=== PATIENT | female | born 1970 | race Hispanic/Latino ===

== ENCOUNTER 2018-01-26 02:41 | Inpatient (IN) | payer OTHER ==
[~2018-01-26] VITALS: Ht 154.9 cm; Wt 83.6 kg
[2018-01-26 03:26] LABS: BASOPHILS % (AUTO) 1.1 % (0.0-5.0); EOSINOPHILS % (AUTO) 2.2 % (0.0-8.0); LYMPHOCYTES % (AUTO) 24.5 % (21.0-51.0); MEAN CORPUSCULAR HEMOGLOBIN 22.3 pg (27.0-33.0); MEAN CORPUSCULAR HGB CONC 30.5 g/dL (32.0-36.0); MEAN CORPUSCULAR VOLUME 73.3 fL (79-99); MONOCYTES % (AUTO) 10.8 % (3.0-13.0); NEUTROPHILS % (AUTO) 61.4 % (40.0-77.0); NUCLEATED RED BLOOD CELLS 0.4 % (0.0-0.19); RED BLOOD CELL COUNT(AUTO) 2.34 MIL/uL (4.00-5.50); RED CELL DISTRIBUTION WIDTH 20.1 % (11.0-15.5)
[2018-01-26 03:26] LABS: APPEARANCE,URINE Clear (CLEAR); BILIRUBIN,URINE Negative (NEGATIVE); COLOR,URINE Yellow (YELLOW); GLUCOSE, URINE (UA) Negative (NEGATIVE); KETONES,URINE Negative (NEGATIVE); LEUKOCYTE ESTERASE ,URINE Negative (NEGATIVE); NITRATE,URINE Negative (NEGATIVE); OCCULT BLOOD,URINE Negative (NEGATIVE); PH,URINE 7.5 (5.0-8.0); PROTEIN,URINE Negative (NEGATIVE)
[2018-01-26 03:31] LABS: HEMATOCRIT 17.1 % (36-48)
[2018-01-26 03:34] LABS: AMPHET/METH SCREEN,URINE NEGATIVE (NEGATIVE); BARBITURATE SCREEN, URINE NEGATIVE (NEGATIVE); BENZODIAZEPINES SCREEN,URINE NEGATIVE (NEGATIVE); CANNABINOID SCREEN,URINE NEGATIVE (NEGATIVE); COCAINE SCREEN,URINE NEGATIVE (NEGATIVE); OPIATE SCREEN,URINE NEGATIVE (NEGATIVE); PHENCYCLIDINE SCREEN,URINE NEGATIVE (NEGATIVE)
[2018-01-26 03:35] LABS: CREATININE 0.5 mg/dL (0.5-1.5); POTASSIUM 3.3 mmol/L (3.5-5.1)
[2018-01-26 03:41] LABS: HCG,QUAL RESULT NEGATIVE (NEGATIVE)
[2018-01-26 03:44] LABS: BILIRUBIN,TOTAL 0.9 mg/dL (0.2-1.0); TOTAL PROTEIN, SERUM 7.6 g/dL (6.0-8.3)
[2018-01-26] MEDS ORDERED: SODIUM CHLORIDE 0.9% 100 ML IV ONE (03:55)
[2018-01-26 03:56] LABS: INR 1.04 (0.85-1.15); PARTIAL THROMBOPLASTIN TIME 28.8 SEC (26.3-35.5); PROTHROMBIN TIME 10.9 SEC (9.6-11.6)
[2018-01-26] MEDS ORDERED: THIAMINE HCL 100 MG/ML 2ML VIAL ONE (04:05)
[2018-01-26] MEDS ORDERED: SODIUM CHLORIDE 0.9% 1000ML 1,000 ML IV ONE (04:05)
[2018-01-26] MEDS ORDERED: M.V.I. IV [ADULT] 10 ML VIAL IV ONE (04:06)
[2018-01-26] MEDS ORDERED: LIDOCAINE HCL-MPF 1% 2ML VIAL IVP PRN (04:30)
[2018-01-26] MEDS ORDERED: SODIUM CHLORIDE 0.9% 1000ML 1,000 ML IV SCH (04:30)
[2018-01-26] MEDS ORDERED: ACETAMINOPHEN 325 MG TAB PO PRN (04:30)
[2018-01-26] MEDS ORDERED: MORPHINE SULFATE 4 MG/1ML SYG IV PRN (04:30)
[2018-01-26] MEDS ORDERED: MORPHINE SULFATE 2 MG/ML 1ML SYG IV PRN (04:30)
[2018-01-26] MEDS ORDERED: POTASSIUM CHLORIDE 20MEQ/100ML 100 ML IV PRN (04:30)
[2018-01-26] MEDS ORDERED: MAGNESIUM 2GM PREMIX 50ML 50 ML IV PRN (04:30)
[2018-01-26 04:32] LABS: WHITE BLOOD COUNT (AUTO) 3.1 K/uL (4.8-10.8)
[2018-01-26 04:35] LABS: PLATELET COUNT (AUTO) 72 K/uL (130-400)
[2018-01-26] MEDS ORDERED: PANTOPRAZOLE SODIUM 80 MG in SODIUM CHLORIDE 0.9% 100 ML IV SCH (04:45)
[2018-01-26] MEDS ORDERED: POTASSIUM BICARB/CIT AC 25 MEQ TABLET.EFF ONE (04:46)
[2018-01-26] MEDS ORDERED: MAGNESIUM 2GM PREMIX 50ML 50 ML IV ONE (04:46)
[2018-01-26 05:04] LABS: BILIRUBIN,DIRECT 0.4 mg/dL (0.0-0.3)
[2018-01-26] MEDS ORDERED: SODIUM CHLORIDE 0.9% 500ML 500 ML IV ONE (05:11)
[2018-01-26 05:22] VITALS: BP 137/77
[2018-01-26 08:11] VITALS: BP 129/60
[2018-01-26] MEDS: M.V.I. IV [ADULT] 10 ML, FOLIC ACID 1 MG, THIAMINE HCL 100 MG in SODIUM CHLORIDE 0.9% 1... IV SCH (09:00)
[2018-01-26] MEDS ORDERED: PANTOPRAZOLE 40 MG/VIAL IVP SCH (09:00)
[2018-01-26] MEDS ORDERED: LORAZEPAM 2 MG/ML 1 ML VIAL IVP PRN (09:30)
[2018-01-26] MEDS ORDERED: DIATR MEGLU/DIATRIZOATE SODIUM 30 ML BOTTLE ONE (09:44)
[2018-01-26] MEDS ORDERED: PEG 3350/NA SULF,BICARB,CL/KCL 4000 ML SOLN PO SCH (10:00)
[2018-01-26 11:41] VITALS: BP 130/73
[2018-01-26] MEDS ORDERED: IOHEXOL 350 MG/ML 100ML INFUS..BTL IV ONE (12:08)
[2018-01-26] MEDS: FUROSEMIDE 10 MG/ML 2ML VIAL IV SCH ×2 (13:08→20:17)
[2018-01-26 13:26] LABS: HEMATOCRIT 25.3 % (36-48)
[2018-01-26 13:39] LABS: MAGNESIUM 1.7 mg/dL (1.80-2.40); POTASSIUM 3.8 mmol/L (3.5-5.1)
[2018-01-26 16:14] VITALS: BP 153/77
[2018-01-26] MEDS: ONDANSETRON HCL 4 MG/2 ML VIAL IV PRN (18:24)
[2018-01-26 19:54] VITALS: BP 145/78
[2018-01-26 22:03] LABS: HEMATOCRIT 24.5 % (36-48)
[2018-01-26 23:51] VITALS: BP 135/75
[2018-01-27] VITALS (13 sets, daily range): BP systolic 99–144; BP diastolic 55–81
[2018-01-27 04:01] LABS: BASOPHILS % (AUTO) 0.5 % (0.0-5.0); EOSINOPHILS % (AUTO) 1.1 % (0.0-8.0); HEMATOCRIT 23.8 % (36-48); LYMPHOCYTES % (AUTO) 9.6 % (21.0-51.0); MEAN CORPUSCULAR HEMOGLOBIN 23.6 pg (27.0-33.0); MEAN CORPUSCULAR VOLUME 76.1 fL (79-99); MONOCYTES % (AUTO) 10.9 % (3.0-13.0); NEUTROPHILS % (AUTO) 77.9 % (40.0-77.0); NUCLEATED RED BLOOD CELLS 0.4 % (0.0-0.19); RED BLOOD CELL COUNT(AUTO) 3.13 MIL/uL (4.00-5.50); RED CELL DISTRIBUTION WIDTH 20.1 % (11.0-15.5); WHITE BLOOD COUNT (AUTO) 3.8 K/uL (4.8-10.8)
[2018-01-27 04:08] LABS: ALBUMIN 2.9 g/dL (3.5-5.0); BILIRUBIN,DIRECT 0.9 mg/dL (0.0-0.3); BILIRUBIN,TOTAL 2.3 mg/dL (0.2-1.0); CREATININE 0.5 mg/dL (0.5-1.5); POTASSIUM 3.3 mmol/L (3.5-5.1); TOTAL PROTEIN, SERUM 7.3 g/dL (6.0-8.3)
[2018-01-27 05:09] LABS: PLATELET COUNT (AUTO) 84 K/uL (130-400)
[2018-01-27] MEDS: ONDANSETRON HCL 4 MG/2 ML VIAL IV PRN (05:13)
[2018-01-27 09:20] LABS: HEMATOCRIT 24.1 % (36-48)
[2018-01-27] MEDS: FUROSEMIDE 10 MG/ML 2ML VIAL IV SCH (09:30)
[2018-01-27] MEDS ORDERED: PROPOFOL 10 MG/ML 20ML VIAL IV ONE ×3 (10:34→10:46)
[2018-01-27] MEDS: M.V.I. IV [ADULT] 10 ML, FOLIC ACID 1 MG, THIAMINE HCL 100 MG in SODIUM CHLORIDE 0.9% 1... IV SCH (11:48)
[2018-01-27] MEDS ORDERED: EPOETIN ALFA 10,000 UNIT/ML VIAL SQ SCH (18:15)
[2018-01-27] MEDS ORDERED: POTASSIUM CHLORIDE 20 MEQ ERTAB PO SCH (18:15)
[2018-01-27] MEDS ORDERED: FOLI1TAB15 PO (18:19)
[2018-01-27] MEDS ORDERED: FERR-82 PO (18:19)
[2018-01-27] MEDS ORDERED: MVIT PO (18:19)
[2018-01-27] MEDS ORDERED: PANT40TA PO (18:19)
[2018-01-28] MEDS ORDERED: PANTOPRAZOLE SODIUM 40 MG TABLET.DR PO SCH (07:30)
[2018-01-29 04:15] LABS: HEPATITIS A ANTIBODY IGM Negative (Negative); HEPATITIS B CORE IGM Negative (Negative); HEPATITIS Bs ANTIGEN SCREEN P Negative (Negative)
== END 2018-01-27 20:38 | disposition home or self-care (01) | DRG 241 ==
LOC: EDH 02:41 → EDHIP 04:10 → 2DH 04:54
PROVIDERS: ADMIT Internal Medicine; ATTEND Internal Medicine
PROC: 30233N1 Transfusion of Nonautologous Red Blood Cells into Peripheral Vein, Percutaneous Approach (ICD-10-PCS; 2018-01-26)
PROC: 0DB68ZX Excision of Stomach, Via Natural or Artificial Opening Endoscopic, Diagnostic (ICD-10-PCS; principal; 2018-01-27)
PROC: 3E0234Z Introduction of Serum, Toxoid and Vaccine into Muscle, Percutaneous Approach (ICD-10-PCS; 2018-01-27)
PROC: 0DJD8ZZ Inspection of Lower Intestinal Tract, Via Natural or Artificial Opening Endoscopic (ICD-10-PCS; 2018-01-27)
DX: K29.71 Gastritis, unspecified, with bleeding (principal); D69.6 Thrombocytopenia, unspecified; E44.0 Moderate protein-calorie malnutrition; D62 Acute posthemorrhagic anemia; K74.60 Unspecified cirrhosis of liver; E66.01 Morbid (severe) obesity due to excess calories; E83.42 Hypomagnesemia; E87.6 Hypokalemia; F10.229 Alcohol dependence with intoxication, unspecified; K92.1 Melena; E56.9 Vitamin deficiency, unspecified; E03.9 Hypothyroidism, unspecified; Y90.8 Blood alcohol level of 240 mg/100 ml or more; K31.89 Other diseases of stomach and duodenum; K64.0 First degree hemorrhoids; Z68.36 Body mass index [BMI] 36.0-36.9, adult; Z23 Encounter for immunization; Z80.9 Family history of malignant neoplasm, unspecified
CPT/HCPCS: 36415; 43239; 45378; 71045; 74178; 80053; 80074; 80305; 81003; 81025; 82140; 82150; 82248; 82270; 82550; 83036; 83690; 83735; 83874; 84132; 84484; 85014; 85018; 85025; 85610; 85730; 86701; 86850; 86900; 86901; 86922; 87390; 88305; 93005; C9113; G0480; J0885; J1940; J2405; J2704; J3411; J3475; J3480; J3490; J7030; J7040; P9016; Q2038; Q9963; Q9967

== ENCOUNTER 2019-03-18 09:08 | Inpatient (IN) | payer OTHER ==
[2019-03-18] VITALS (19 sets, daily range): BP systolic 86–129; BP diastolic 38–69
[~2019-03-18] VITALS: Ht 154.9 cm; Wt 82.6 kg
[~2019-03-18 09:08] MED LIST: FERR-82 PO; FOLI1TAB15 PO; MVIT PO; PANT40TA PO
[2019-03-18 09:42] LABS: BASOPHILS % (AUTO) 0.6 % (0.0-5.0); EOSINOPHILS % (AUTO) 0.8 % (0.0-8.0); LYMPHOCYTES % (AUTO) 14.4 % (21.0-51.0); MEAN CORPUSCULAR HEMOGLOBIN 33.6 pg (27.0-33.0); MEAN CORPUSCULAR VOLUME 108.5 fL (79-99); MONOCYTES % (AUTO) 6.8 % (3.0-13.0); NEUTROPHILS % (AUTO) 77.4 % (40.0-77.0); PLATELET COUNT (AUTO) 165 K/uL (130-400); RED BLOOD CELL COUNT(AUTO) 2.03 MIL/uL (4.00-5.50); RED CELL DISTRIBUTION WIDTH 15.5 % (11.0-15.5); WHITE BLOOD COUNT (AUTO) 11.4 K/uL (4.8-10.8)
[2019-03-18 09:55] LABS: CARBON DIOXIDE 24 mmol/L (21-32); CHLORIDE 99 mmol/L (101-111); CREATININE 0.7 mg/dL (0.5-1.5); GLOMERULAR FILTR. RATE CALC 95 mL/min (>60); GLUCOSE,RANDOM 95 mg/dL (70-105); INR 1.67 (0.85-1.15); PARTIAL THROMBOPLASTIN TIME 34.7 SEC (26.3-35.5); POTASSIUM 4.2 mmol/L (3.5-5.1); PROTHROMBIN TIME 17.2 SEC (9.6-11.6); SODIUM SERUM 131 mmol/L (136-145); UREA NITROGEN, BLOOD 7 mg/dL (7-18)
[2019-03-18] MEDS ORDERED: KETOROLAC TROMETHAMINE 30MG/ML ONE (09:56)
[2019-03-18] MEDS ORDERED: ALBUMIN (HUMAN) 25% 50 ML IV ONE ×2 (09:56→10:28)
[2019-03-18] MEDS ORDERED: ONDANSETRON HCL 4 MG/2 ML VIAL ONE (09:56)
[2019-03-18] MEDS ORDERED: SODIUM CHLORIDE 0.9% 500ML 500 ML IV ONE (09:57)
[2019-03-18 10:03] LABS: ALANINE AMINOTRANSFERASE 23 U/L (12-78); ALBUMIN 1.6 g/dL (3.5-5.0); ALCOHOL, BLOOD < 3 mg/dL (0-10); ASPARTATE AMINOTRANSFERASE 105 U/L (10-37); BILIRUBIN,TOTAL 10.4 mg/dL (0.2-1.0); CREATINE KINASE, TOTAL 62 U/L (21-232); LIPASE 122 U/L (114-286); TOTAL PROTEIN, SERUM 5.7 g/dL (6.0-8.3)
[2019-03-18 10:09] LABS: BILIRUBIN,DIRECT 8.6 mg/dL (0.0-0.3)
[2019-03-18] MEDS ORDERED: CEFTRIAXONE SODIUM 2 GM VIAL ONE (10:27)
[2019-03-18] MEDS ORDERED: OCTREOTIDE ACETATE 500 MCG in SODIUM CHLORIDE 0.9% 97.5 ML IV PRN (11:00)
[2019-03-18] MEDS: CEFTRIAXONE SODIUM 1 GM IV SCH (11:00)
[2019-03-18] MEDS ORDERED: PANTOPRAZOLE SODIUM 80 MG in SODIUM CHLORIDE 0.9% 100 ML IV SCH (11:01)
[2019-03-18] MEDS ORDERED: NOREPINEPHRINE 4MG/NS 250ML 250 ML IV SCH (12:15)
[2019-03-18] MEDS ORDERED: PHARMACY COMMUNICATION MISC PRN (12:15)
[2019-03-18] MEDS ORDERED: LORAZEPAM 2 MG/ML 1 ML VIAL IVP PRN (12:15)
[2019-03-18] MEDS ORDERED: CHLORDIAZEPOXIDE HCL 25 MG CAP PO PRN (12:15)
[2019-03-18] MEDS ORDERED: NOREPINEPHRINE BITARTRATE 1 MG/1 ML ML IV ONE (12:25)
[2019-03-18] MEDS ORDERED: SODIUM CHLORIDE 0.9% 250 ML IV ONE (12:25)
[2019-03-18] MEDS ORDERED: FUROSEMIDE 10 MG/ML 2ML VIAL IV SCH (13:00)
[2019-03-18] MEDS ORDERED: ALBUMIN (HUMAN) 5% 250 ML IV SCH (13:45)
[2019-03-18 14:12] LABS: HEMATOCRIT 21.1 % (36-48)
[2019-03-18] MEDS ORDERED: PHYTONADIONE 10 MG/1 ML AMP SQ SCH (15:00)
[2019-03-18] MEDS ORDERED: OMEP-298 PO (15:14)
[2019-03-18] MEDS ORDERED: SPIR25TA6 PO (15:17)
[2019-03-18] MEDS ORDERED: LACT10SO PO (15:18)
[2019-03-18] MEDS: LEVOFLOXACIN 500 MG/D5W 100 ML 100 ML IV SCH (16:32)
[2019-03-18] MEDS: SODIUM CHLORIDE 0.9% 1000ML 1,000 ML IV SCH ×2 (16:35→20:54)
[2019-03-18] MEDS ORDERED: PEG 3350/NA SULF,BICARB,CL/KCL 4000 ML SOLN PO SCH (17:00)
--- NOTE | 2019-03-18 20:33 | NUR ---
PT HAS NEAR FINISHED HER [employer]. IN AND OUT OF BED TO BATHROOM. BP 129/56. NO DIZZINESS.
[2019-03-18] MEDS ORDERED: MIDODRINE HCL 5 MG TABLET PO SCH (21:00)
[2019-03-18 21:33] LABS: HEMATOCRIT 22.3 % (36-48)
--- NOTE | 2019-03-18 22:58 | NUR ---
HAND OFF REPORT GIVEN TO ANTONIO BLAKE.
[2019-03-19] VITALS (13 sets, daily range): BP systolic 75–102; BP diastolic 34–57
[2019-03-19 03:45] LABS: HEMATOCRIT 21.2 % (36-48); MEAN CORPUSCULAR HEMOGLOBIN 33.5 pg (27.0-33.0); MEAN CORPUSCULAR HGB CONC 30.7 g/dL (32.0-36.0); MEAN CORPUSCULAR VOLUME 109.1 fL (79-99); NUCLEATED RED BLOOD CELLS 0.1 % (0.0-0.19); PLATELET COUNT (AUTO) 113 K/uL (130-400); RED BLOOD CELL COUNT(AUTO) 1.94 MIL/uL (4.00-5.50); RED CELL DISTRIBUTION WIDTH 15.1 % (11.0-15.5); WHITE BLOOD COUNT (AUTO) 5.8 K/uL (4.8-10.8)
[2019-03-19 03:57] LABS: INR 1.85 (0.85-1.15)
[2019-03-19 04:01] LABS: % IRON SATURATION 13.4 % (22-44)
[2019-03-19 04:03] LABS: ALBUMIN 1.7 g/dL (3.5-5.0); CREATININE 0.8 mg/dL (0.5-1.5); POTASSIUM 3.6 mmol/L (3.5-5.1)
--- NOTE | 2019-03-19 04:10 | NUR ---
CRITICAL LAB VALUE REPORTED H/H RESULTS ALONG WITH LOW BP TO SOFIA FROM BM. ORDERS GIVEN.
[2019-03-19 04:28] LABS: THYROID STIMULATING HORMONE 2.57 uIU/mL (0.36-3.74)
[2019-03-19] MEDS ORDERED: SODIUM CHLORIDE 0.9% 500ML 500 ML IV ONE (04:47)
--- NOTE | 2019-03-19 05:09 | NUR ---
BLOOD TRANSFUSION 1 UNIT OF PRBC INFUSING AT 125ML/HR. REFER TO TRANSFUSION FORM. PT EDUCATED ON SIGNS AND SYMPTOMS OF REACTION. CALL LIGHT WITHIN REACH.
--- NOTE | 2019-03-19 05:15 | NUR ---
BLOOD TRANSFUSION PT IN BED RESTING. PT IN NO SIGN OF DISTRESS. DENIES SOB.
[2019-03-19 05:22] LABS: BAND NEUTROPHILS % (MANUAL) 4 % (0-2); EOSINOPHILS % (MANUAL) 2 % (1-6); LYMPHOCYTES % (MANUAL) 12 % (22-44); MAN.DIFF COMMENT-IMPRESSION MANUAL DIFFERENTIAL; MONOCYTES % (MANUAL) 10 % (2-9); PLATELET MORPHOLOGY COMMENT ADEQUATE; SEGMENTED NEUTROPHILS % 72 % (40-70)
[2019-03-19] MEDS ORDERED: PROPOFOL 10 MG/ML 20ML VIAL IV ONE ×2 (07:33→07:58)
[2019-03-19] MEDS ORDERED: M.V.I. IV [ADULT] 10 ML, FOLIC ACID 1 MG, THIAMINE HCL 100 MG in SODIUM CHLORIDE 0.9% 1... IV SCH (09:00)
[2019-03-19] MEDS ORDERED: THIAMINE HCL 100 MG/ML 2ML VIAL IVP SCH (09:00)
[2019-03-19] MEDS: MIDODRINE HCL 5 MG TABLET PO SCH ×3 (09:00→20:33)
[2019-03-19 10:17] LABS: HEMATOCRIT 24.6 % (36-48)
--- NOTE | 2019-03-19 11:43 | NUR ---
PT IS READY TO BE MOVED TO ROOM 410 WILL GIVE REPORT TO SHANKAR.
--- NOTE | 2019-03-19 12:30 | NUR ---
RECEIVED PT FROM JAKOB, FROM ICU ROOM 217
[2019-03-19] MEDS: CEFTRIAXONE SODIUM 1 GM IV SCH (12:45)
--- NOTE | 2019-03-19 12:51 | NUR ---
HEAD TO TOE ASSESSMENT PATIENT IN BED AAOX3, IN NO DISTRESS, DENIES ANY SOB, LUNGS SOUNDS CLEAR AP & L LUNG PATTERSON., UP WALKING IN AND OUT OF RESTROOM TO VOID. IV X3, WITH SCANT AMOUNT OF BLOOD NOTED TO BOTH ANTECUBITAL DRESSINGS, RIGHT FOREARM INTACT, ABDOMINAL DISTENTION NOTED, DENIES ANY PAIN, BOWEL SOUNDS PRESENT X4 QUADRANTS, +2 PITTING EDEMA TO CAIN. LOWER EXTREMITIES. NO WOUNDS NOTED.
--- NOTE | 2019-03-19 15:06 | NUR ---
DC PLAN VISITED WITH PATIENT. PATIENT LIVES WITH SISTER AND TIMI, PATIENT HAS NO SERVICES OR DME'S. FEELS SAFE TO RETURN HOME. Addendum: 03/19/19 at 1507 by ERASMO CAICEDO RN CM Amended: Links added.
[2019-03-19 16:24] LABS: HEMATOCRIT 22.4 % (36-48)
[2019-03-19] MEDS: LEVOFLOXACIN 500 MG/D5W 100 ML 100 ML IV SCH (16:42)
[2019-03-20] VITALS (10 sets, daily range): BP systolic 85–102; BP diastolic 50–56
[2019-03-20 00:18] LABS: HEMATOCRIT 20.4 % (36-48)
--- NOTE | 2019-03-20 01:55 | NUR ---
TRANSFUSION HGB 6.5 CALLED HOSPITALIST SHARON HUR[employer] TEST TECHNICIAN INFORMED WITH ORDERS FOR TRANSFUSION, ONE UNIT PRBC STARTED WITH BLOOD WARM INDICATED BY BLOOD BANK VIA LEFT AC 20 GAUGE CATHETER, TEMP 97.6 F PULSE 72 B/P 89/53 SAT 98 % ON R/A
--- NOTE | 2019-03-20 02:00 | NUR ---
TRANSFUSION NO REACTION NOTED, PRBC INFUSING WELL, TEMP 97.9 F P 67 RESP 20 B/P 89/51
--- NOTE | 2019-03-20 02:10 | NUR ---
TRANSFUSION NO REACTION NOTED, PRBC INFUSING WELL, TEMP 97.8 PULSE69 RESP 20 B/P 92/58 SAT 97 % ON RA
[2019-03-20] MEDS: SODIUM CHLORIDE 0.9% 1000ML 1,000 ML IV SCH ×2 (02:18→12:54)
--- NOTE | 2019-03-20 05:20 | NUR ---
TRANSFUSION PRBC COMPLETE, NO REACTION NOTED, TOLERATED WELL, TEMP 98.2 F PULSE 69 RESP, 18 B/P 91/58, SAT 98 % R/A
[2019-03-20 07:02] LABS: HEMATOCRIT 24.1 % (36-48); MEAN CORPUSCULAR HEMOGLOBIN 32.4 pg (27.0-33.0); MEAN CORPUSCULAR HGB CONC 32.1 g/dL (32.0-36.0); MEAN CORPUSCULAR VOLUME 100.8 fL (79-99); NUCLEATED RED BLOOD CELLS 0.1 % (0.0-0.19); PLATELET COUNT (AUTO) 113 K/uL (130-400); RED BLOOD CELL COUNT(AUTO) 2.39 MIL/uL (4.00-5.50); RED CELL DISTRIBUTION WIDTH 19.5 % (11.0-15.5); WHITE BLOOD COUNT (AUTO) 5.6 K/uL (4.8-10.8)
[2019-03-20 07:19] LABS: ALBUMIN 1.5 g/dL (3.5-5.0); BILIRUBIN,TOTAL 9.9 mg/dL (0.2-1.0); CREATININE 0.7 mg/dL (0.5-1.5); POTASSIUM 4.1 mmol/L (3.5-5.1); TOTAL PROTEIN, SERUM 4.7 g/dL (6.0-8.3)
[2019-03-20 08:17] LABS: BASOPHILS % (MANUAL) 1 % (0-2); EOSINOPHILS % (MANUAL) 2 % (1-6); LYMPHOCYTES % (MANUAL) 5 % (22-44); MAN.DIFF COMMENT-IMPRESSION MANUAL DIFFERENTIAL; MONOCYTES % (MANUAL) 11 % (2-9); PLATELET MORPHOLOGY COMMENT SLIGHTLY DECREASED; SEGMENTED NEUTROPHILS % 81 % (40-70)
--- NOTE | 2019-03-20 08:42 | NUR ---
IR SPOKE TO DEV OF RADIOLOGY DEPT TO REPORT THAT INFORMED CONSENT SIGNED FOR ABDOMINAL PARACENTESIS AND PATIENT READY TO BE PICKED UP.
[2019-03-20] MEDS ORDERED: M V I IV SCH (09:00)
[2019-03-20] MEDS ORDERED: FOLIC ACID IV SCH (09:00)
[2019-03-20] MEDS ORDERED: THIAMINE HCL IV SCH (09:00)
[2019-03-20] MEDS ORDERED: [UNRECOGNIZED DRUG - OTHER] IV SCH (09:00)
--- NOTE | 2019-03-20 09:00 | NUR ---
DR. JARA AWARE OF CONSULT SPOKE TO MD VIA TELEPHONE REGARDING CONSULT.
--- NOTE | 2019-03-20 09:55 | NUR ---
U/S GD PARACENTESIS PROCEDURE PERFORMED BY DR ESCALANTE. PUNCTURE SITE RIGHT LOWER QUADRANT OF ABDOMEN AND PATIENT TOLERATED PROCEDURE WELL. TOTAL REMOVED 2.0 LITERS OF CLEAR YELLOW ASCITES FLUID. END OF PROCEDURE AT 1010. CATHETER REMOVED AND DRESSING APPLIED. NO BLEEDING NOTED. PT DID NOT MEET CRITERIA FOR ALBUMIN TO BE GIVEN DURING PROCEDURE PER [facility] ALBUMIN PROTOCOL GUIDELINES. REPORT CALLED TO LOU CANCHOLA. PATIENT PT DISCHARGED TRANSPORTED VIA W/C, STABLE, AAO X3 WITH NO C/O PAIN. SPECIMEN SENT TO LAB.
--- NOTE | 2019-03-20 10:30 | NUR ---
CARSON OWEN FOR [facility] FOR DR. JARA HERE TO SEE PATIENT, BUT PATIENT IS CURRENTLY NOT IN ROOM SHE IS UNDERGOING ABDOMINAL PARACENTESIS. CARSON OWEN TOLD ME HE WOULD RETURN TO SEE THE PATIENT TOMORROW, BUT TOLD ME THAT HE SPOKE WITH DR. JARA AND OF RIGHT NOW NO PLANS FOR SURGERY. CARSON OWEN CONTINUED TO EXPLAIN THAT PATIENT MAY NEED A "TIPS" PROCEDURE WHICH WOULD REQUIRE TRANSFER TO [facility] ([facility]) FOR PATIENT TO BE EVALUATED BY HEPATOBILIARY SPECIALIST DR. HUYNH. I REPLIED TO CASRON OWEN THAT I WOULD INFORM HOSPITALIST OF THEIR RECOMMENDATIONS SO HOSPITALIST WOULD BE AWARE, BUT OF COURSE EXPLAIN THAT SURGEON OR PA PLANS TO TELL PATIENT THIS INFORMATION TOMORROW.
[2019-03-20] MEDS: MIDODRINE HCL 5 MG TABLET PO SCH ×4 (11:19→21:22)
[2019-03-20] MEDS: CEFTRIAXONE SODIUM 1 GM IV SCH (11:20)
[2019-03-20] MEDS: LEVOFLOXACIN 500 MG/D5W 100 ML 100 ML IV SCH (15:40)
--- NOTE | 2019-03-20 16:57 | NUR ---
LIVER FIALURE- TRANSPLANT CANDIDATE INITIAL ASSESSMENT DONE WITH PATIENT- LIVES W MOM AND SISTER- RECENT BEREAVEMENT- ADMITS TO INTERMITTANT HEAVY DRINKING. STATES THAT THE THING THAT 'TIPPED' EVERYTHING WAS THAT SHE GOT FLU AND WAS USING TYLENOL++, 3XDAY X3 WEEKS' STATES SHE KNOWS SHE HAS A LIVER PROBLEM, BUTSHE HAS NOT EEN TOLD HER LIVER WAS BAD. THIS CM RAN THE MELD SCORE- 26, (!!)AND DISCUSSED W DR. PETERSON - PT NEEDS SSI FOR LIVER DISEASE, MEETS CRITERIA TO BE ON TRANSPLANT LIST RIGHT NOW (IF ETOH ABSTINENCE X 6 MOS A CHART NEEDS DOCUMENTATION TO REFLECT SHE IS NO LONGER DRINKNING AND THAT SHE HAS A CHRONIC ILLNESS THAT WILL IMPEDE HER ABILITY TO BE EMPLOYED. MD WILL ADD TO NOTE SPOEK TO PATIENT- PLEASE GO BACK TO YOUR PRIMARY MD AND ASK FOR REFERRAL TO TRANSPLANT . ALSO ADVISED PT WILL SEND IN [facility] FOR SSI SCREENING- THERE ARE A TYPE OF SSI WHERE SHE CAN STILL WORK SOME HOURS Addendum: 03/20/19 at 1707 by MELISSA KRUSE RN CM Amended: Links added. Addendum: 03/20/19 at 1708 by MELISSA KRUSE RN CM TYPO- POSSIBLE TRANSPLANT CANDIDATE?
[2019-03-20 17:04] LABS: APPEARANCE BODY FLUID CLEAR (CLEAR); COLOR,BODY FLUID YELLOW (LT YELLOW); SPECIMENTYPE,BODY FLUID ASCITES
[2019-03-20 17:05] LABS: BODY FLUID WBC 37 /cu. mm.; TOTAL VOLUME,BODY FLUID 2000 mL
[2019-03-20 17:08] LABS: BODY FLUID RBC 18 /cu. mm.
--- NOTE | 2019-03-20 17:08 | NUR ---
TYPO- POSSIBLE TRANSPLANT CANDIDATE?? SEE PREVIOOUS NOTE RE DC PLANNING. COUNSELLED ON CIRRHOSIS AND LIVER FAILURE, NEEDS TO ABSTAIN., ASK PMD RE OPTIONS
[2019-03-20 17:11] LABS: BF LYMPHOCYTE 38 %; BF MESOTHELIAL 27 %; BF MONOCYTE 13 %; BF OTHER CELLS 2
--- NOTE | 2019-03-20 17:15 | NUR ---
DR. PETERSON INFORMED HOSPITALIST THAT I SPOKE TO DR. JARA'S PA REGARDING SURGEON RECOMMENDATIONS, BUT SURGEON/PA WAS NOT ABLE TO SEE PATIENT TODAY AND PLAN TO INFORM PATIENT TOMORROW. DR. PETERSON DID ACKNOWLEDGE POSSIBILITY OF TRANSFERRING PATIENT TO R TOMORROW AFTER SURGEON SPEAKS TO PATIENT. ALSO SPOKE TO HOSPITALIST REGARDING PATIENTS TRENDS IN BLOOD PRESSURE THROUGHOUT THE DAY AND MD TOLD ME OF PLAN TO ADMINISTER IV BLOOD AND BLOOD TRANSFUSION, IF PATIENT STILL HYPOTENSIVE AFTER THESE INTERVENTIONS, PATIENT MAY NEED TO BE TRANSFERRED TO PCCU.
[2019-03-20] MEDS ORDERED: SODIUM CHLORIDE 0.9% 500ML 500 ML IV SCH ×2 (17:30→18:30)
[2019-03-20 17:45] LABS: HEMATOCRIT 24.6 % (36-48); MEAN CORPUSCULAR HEMOGLOBIN 32.4 pg (27.0-33.0); MEAN CORPUSCULAR HGB CONC 32.2 g/dL (32.0-36.0); MEAN CORPUSCULAR VOLUME 100.7 fL (79-99); NUCLEATED RED BLOOD CELLS 0.1 % (0.0-0.19); PLATELET COUNT (AUTO) 145 K/uL (130-400); RED BLOOD CELL COUNT(AUTO) 2.44 MIL/uL (4.00-5.50); RED CELL DISTRIBUTION WIDTH 20.1 % (11.0-15.5); WHITE BLOOD COUNT (AUTO) 8.2 K/uL (4.8-10.8)
[2019-03-20 18:45] LABS: BASOPHILS % (MANUAL) 1 % (0-2); EOSINOPHILS % (MANUAL) 3 % (1-6); LYMPHOCYTES % (MANUAL) 4 % (22-44); MAN.DIFF COMMENT-IMPRESSION MANUAL DIFFERENTIAL; MONOCYTES % (MANUAL) 10 % (2-9); PLATELET MORPHOLOGY COMMENT ADEQUATE; SEGMENTED NEUTROPHILS % 82 % (40-70)
--- NOTE | 2019-03-20 21:10 | NUR ---
PATIENT STARTED BLOOD TRANSFUSION, 1 UNIT OF PACKED RBCS WITH BLOOD WARMER, TOLERATING WELL. NO ADVERSE REACTIONS NOTED. VITALS STABLE. AFEBRILE. NO SIGNS OF DISTRESS NOTED. WILL CONTINUE TO BE OBSERVED. CALL LIGHT WITHIN REACH. Addendum: 03/21/19 at 0628 by VERONIQUE MOYER RN RN Amended: Links added.
--- NOTE | 2019-03-21 | NUR ---
ROUNDS PATIENT AWAKE AND ALERT. VOICES ALL NEEDS. NO COMPLAINTS OF PAIN VOICED AT THIS TIME. VITALS STABLE. AFEBRILE. COMPLETED BLOOD TRANSFUSION. NO ADVERSE REACTIONS NOTED. RESP EVEN AND UNLABORED. NO SOB NOTED. ON ROOM AIR. NO ACTIVE BLEEDING NOTED AT THIS TIME. IN GOOD SPIRITS. WILL CONTINUE TO BE OBSERVED. CALL LIGHT WITHIN REACH. Addendum: 03/21/19 at 0631 by VERONIQUE MOYER RN RN Amended: Links added.
[2019-03-21 01:29] LABS: HEMATOCRIT 25.1 % (36-48)
[2019-03-21 04:00] VITALS: BP 96/56
[2019-03-21 08:01] VITALS: BP 96/53
[2019-03-21] MEDS: MIDODRINE HCL 5 MG TABLET PO SCH ×3 (10:08→20:04)
[2019-03-21] MEDS: PANTOPRAZOLE SODIUM 40 MG TABLET.DR PO SCH (10:08)
[2019-03-21 11:35] VITALS: BP 92/54
--- NOTE | 2019-03-21 12:30 | NUR ---
In regards to order for interventional rediology to evaluate for TIPS procedure, i have called radiology and spoke to Zari, she will speak to the radiologist to see if pt meets criteria and call me back.
[2019-03-21] MEDS: CEFTRIAXONE SODIUM 1 GM IV SCH (13:05)
[2019-03-21 15:50] VITALS: BP 100/55
[2019-03-21] MEDS: LEVOFLOXACIN 500 MG/D5W 100 ML 100 ML IV SCH (16:43)
[2019-03-21] MEDS: SODIUM CHLORIDE 0.9% 1000ML 1,000 ML IV SCH (18:54)
[2019-03-21 19:00] VITALS: BP 95/44
[2019-03-22] VITALS (9 sets, daily range): BP systolic 81–111; BP diastolic 48–59
[2019-03-22] MEDS: SODIUM CHLORIDE 0.9% 1000ML 1,000 ML IV SCH (04:09)
[2019-03-22 05:09] LABS: HEMATOCRIT 23.5 % (36-48); MEAN CORPUSCULAR HEMOGLOBIN 32.2 pg (27.0-33.0); MEAN CORPUSCULAR HGB CONC 32.8 g/dL (32.0-36.0); NUCLEATED RED BLOOD CELLS 0.1 % (0.0-0.19); PLATELET COUNT (AUTO) 118 K/uL (130-400); RED BLOOD CELL COUNT(AUTO) 2.39 MIL/uL (4.00-5.50); WHITE BLOOD COUNT (AUTO) 8.9 K/uL (4.8-10.8)
[2019-03-22 05:27] LABS: BAND NEUTROPHILS % (MANUAL) 1 % (0-2); EOSINOPHILS % (MANUAL) 2 % (1-6); LYMPHOCYTES % (MANUAL) 6 % (22-44); MONOCYTES % (MANUAL) 6 % (2-9); SEGMENTED NEUTROPHILS % 85 % (40-70)
[2019-03-22 05:28] LABS: MAN.DIFF COMMENT-IMPRESSION MANUAL DIFFERENTIAL
[2019-03-22 05:38] LABS: ALBUMIN 1.4 g/dL (3.5-5.0); BILIRUBIN,TOTAL 11.2 mg/dL (0.2-1.0); CREATININE 0.6 mg/dL (0.5-1.5); POTASSIUM 3.8 mmol/L (3.5-5.1); TOTAL PROTEIN, SERUM 4.6 g/dL (6.0-8.3)
[2019-03-22] MEDS: PANTOPRAZOLE SODIUM 40 MG TABLET.DR PO SCH (06:31)
[2019-03-22] MEDS: FOLIC ACID 1 MG TABLET PO SCH (08:46)
[2019-03-22] MEDS: THIAMINE HCL 100 MG TABLET PO SCH (08:46)
[2019-03-22] MEDS: MIDODRINE HCL 5 MG TABLET PO SCH ×3 (08:46→19:33)
[2019-03-22] MEDS: CEFTRIAXONE SODIUM 1 GM IV SCH (11:46)
[2019-03-22] MEDS: LEVOFLOXACIN 500 MG/D5W 100 ML 100 ML IV SCH (14:30)
[2019-03-22 15:11] LABS: HEMATOCRIT 30.2 % (36-48); MEAN CORPUSCULAR HEMOGLOBIN 31.2 pg (27.0-33.0); MEAN CORPUSCULAR HGB CONC 30.6 g/dL (32.0-36.0); MEAN CORPUSCULAR VOLUME 101.8 fL (79-99); NUCLEATED RED BLOOD CELLS 0.1 % (0.0-0.19); PLATELET COUNT (AUTO) 126 K/uL (130-400); RED BLOOD CELL COUNT(AUTO) 2.96 MIL/uL (4.00-5.50); RED CELL DISTRIBUTION WIDTH 19.5 % (11.0-15.5); WHITE BLOOD COUNT (AUTO) 11.6 K/uL (4.8-10.8)
[2019-03-22] MEDS ORDERED: SODIUM CHLORIDE 0.9% 500ML 500 ML IV SCH (20:30)
--- NOTE | 2019-03-22 20:30 | NUR ---
PT STATUS 19:20 PT BP 81/50 HR 90 RECHECK, 84/48 HR 94 O2 SAT 98% ON ROOM AIR, PT AWAKE, ALERT AND RESPONSIVE, NO C/O DISCOMFORT AT THIS TIME. MEDICATED WITH MIDODRINE 10MG SCHEDULED. BP RECHECKED AT 20:15 84/49 HR 91. INSTRUMENT AND CONTROL TECHNICIAN ALEKS MADE AWARE, RECEIVED NEW ORDERS FOR STAT H&H AND NS BOLUS OF 500ML.
[2019-03-22] MEDS ORDERED: SODIUM CHLORIDE 0.9% 500ML 500 ML IV ONE (20:35)
[2019-03-22 21:07] LABS: HEMATOCRIT 22.7 % (36-48)
[2019-03-22] MEDS ORDERED: ALBUMIN (HUMAN) 25% 100 ML IV SCH (21:15)
--- NOTE | 2019-03-22 21:20 | NUR ---
UPDATE HGB 7.3/HCT 22.7, BP 81/50 HR 97, INTEGRATED MARKETING SPECIALIST ALEKS IN UNIT, RECEIVED NEW ORDERS FOR ALBUMIN X 1 DOSE NOW, NS @75ML/HR. ONCE ALBUMIN ADMINISTERED MAKE HER AWARE IF PT CONTINUES HYPOTENSIVE FOR ORDERS TO TRANSFER TO ICU.
[2019-03-22] MEDS ORDERED: ALBUMIN (HUMAN) 25% 200 ML IV ONE (21:26)
[2019-03-22] MEDS ORDERED: SODIUM CHLORIDE 0.9% 1000ML 1,000 ML IV SCH (21:30)
[2019-03-23] VITALS (37 sets, daily range): BP systolic 88–122; BP diastolic 39–79
[2019-03-23] MEDS ORDERED: NOREPINEPHRINE 4MG/NS 250ML 250 ML IV SCH (00:30)
[2019-03-23 00:33] LABS: BASOPHILS % (AUTO) 0.7 % (0.0-5.0); EOSINOPHILS % (AUTO) 0.6 % (0.0-8.0); LYMPHOCYTES % (AUTO) 21.4 % (21.0-51.0); MEAN CORPUSCULAR HEMOGLOBIN 31.3 pg (27.0-33.0); MEAN CORPUSCULAR HGB CONC 31.9 g/dL (32.0-36.0); MEAN CORPUSCULAR VOLUME 98.1 fL (79-99); MONOCYTES % (AUTO) 11.2 % (3.0-13.0); NEUTROPHILS % (AUTO) 66.1 % (40.0-77.0); PLATELET COUNT (AUTO) 139 K/uL (130-400); RED BLOOD CELL COUNT(AUTO) 2.05 MIL/uL (4.00-5.50); RED CELL DISTRIBUTION WIDTH 18.2 % (11.0-15.5)
--- NOTE | 2019-03-23 00:43 | NUR ---
ICU TRANSFER POST NS BOLUS AND ALBUMIN ADMINISTRATION VITALS BP 85/48 HR 87 RR 20 O2 SAT 92% TEMP 98.3 ORALLY, GIS PROGRAMMER ALEKS MADE AWARE RECEIVED ORDERS TO TRANSFER PT TO ICU FOR LEVOPHED DRIP. REPORT GIVEN TO LOU MCKENNA. PT CONTINUES AWAKE, ALERT AND VERBALLY RESPONSIVE. RN AND DIRECTOR OF TEACHER EDUCATION TO TRANSFER PT AND ALL BELONGINGS TO ICU ROOM 216.
[2019-03-23 01:13] LABS: HEMATOCRIT 20.1 % (36-48)
--- NOTE | 2019-03-23 01:30 | NUR ---
TRANSFER PT RECEIVED FROM [facility] VIA BED. PT AWAKE AND COOPERATIVE BUT LETHARGIC. PT ORIENTED TO ROOM, CALLBELL REVIEWED AND WITHIN REACH. WHITE BOARD UP-DATED. BEDSIDE MONITORS PARAMETERS REVIEWED AND ADJUSTED. ASSESSMENT COMPLETED, SEE FLOW SHEET.
[2019-03-23] MEDS: SODIUM CHLORIDE 0.9% 250 ML IV ONE ×2 (01:47→02:37)
[2019-03-23] MEDS: NOREPINEPHRINE BITARTRATE 1 MG/1 ML ML IV ONE ×2 (01:47→02:34)
[2019-03-23] MEDS ORDERED: SODIUM CHLORIDE 0.9% 250 ML IV ONE (02:25)
--- NOTE | 2019-03-23 06:00 | NUR ---
PRBC ONE UNIT OF PRBC GIVEN PER ORDERS. SEE TRANSFUSION RECORD FOR MORE INFORMATION
[2019-03-23] MEDS: PANTOPRAZOLE SODIUM 40 MG TABLET.DR PO SCH (06:35)
[2019-03-23 08:57] LABS: BASOPHILS % (AUTO) 0.3 % (0.0-5.0); EOSINOPHILS % (AUTO) 0.8 % (0.0-8.0); HEMATOCRIT 25.6 % (36-48); LYMPHOCYTES % (AUTO) 13.8 % (21.0-51.0); MEAN CORPUSCULAR HEMOGLOBIN 31.4 pg (27.0-33.0); MEAN CORPUSCULAR HGB CONC 32.5 g/dL (32.0-36.0); MEAN CORPUSCULAR VOLUME 96.6 fL (79-99); MONOCYTES % (AUTO) 10.5 % (3.0-13.0); NEUTROPHILS % (AUTO) 74.6 % (40.0-77.0); NUCLEATED RED BLOOD CELLS 0.1 % (0.0-0.19); PLATELET COUNT (AUTO) 115 K/uL (130-400); RED BLOOD CELL COUNT(AUTO) 2.65 MIL/uL (4.00-5.50); RED CELL DISTRIBUTION WIDTH 18.9 % (11.0-15.5); WHITE BLOOD COUNT (AUTO) 11.5 K/uL (4.8-10.8)
[2019-03-23 09:10] LABS: ALBUMIN 1.8 g/dL (3.5-5.0); BILIRUBIN,TOTAL 12.3 mg/dL (0.2-1.0); CREATININE 0.7 mg/dL (0.5-1.5); POTASSIUM 3.7 mmol/L (3.5-5.1); TOTAL PROTEIN, SERUM 4.7 g/dL (6.0-8.3)
[2019-03-23] MEDS: THIAMINE HCL 100 MG TABLET PO SCH (09:47)
[2019-03-23] MEDS: MIDODRINE HCL 5 MG TABLET PO SCH ×3 (09:47→20:42)
[2019-03-23] MEDS: FOLIC ACID 1 MG TABLET PO SCH (09:47)
[2019-03-23] MEDS: CEFTRIAXONE SODIUM 1 GM IV SCH (14:14)
[2019-03-23] MEDS: LEVOFLOXACIN 500 MG/D5W 100 ML 100 ML IV SCH (14:15)
[2019-03-23] MEDS ORDERED: MIDODRINE HCL 5 MG TABLET ONE (15:21)
[2019-03-23] MEDS: PHYTONADIONE 10 MG in SODIUM CHLORIDE 0.9% 50 ML IV SCH (15:28)
[2019-03-23 15:35] LABS: INR 1.69 (0.85-1.15); PARTIAL THROMBOPLASTIN TIME 39.9 SEC (26.3-35.5); PROTHROMBIN TIME 17.4 SEC (9.6-11.6)
[2019-03-23] MEDS: FUROSEMIDE 20 MG TABLET PO SCH (18:27)
[2019-03-23] MEDS: SPIRONOLACTONE 25 MG TAB PO SCH (20:42)
[2019-03-24] VITALS (16 sets, daily range): BP systolic 85–110; BP diastolic 41–61
[2019-03-24 03:51] LABS: BASOPHILS % (AUTO) 1.5 % (0.0-5.0); EOSINOPHILS % (AUTO) 1.2 % (0.0-8.0); HEMATOCRIT 22.6 % (36-48); LYMPHOCYTES % (AUTO) 17.7 % (21.0-51.0); MEAN CORPUSCULAR HEMOGLOBIN 31.2 pg (27.0-33.0); MEAN CORPUSCULAR HGB CONC 32.5 g/dL (32.0-36.0); MONOCYTES % (AUTO) 10.8 % (3.0-13.0); NEUTROPHILS % (AUTO) 68.8 % (40.0-77.0); NUCLEATED RED BLOOD CELLS 0.1 % (0.0-0.19); PLATELET COUNT (AUTO) 117 K/uL (130-400); RED BLOOD CELL COUNT(AUTO) 2.35 MIL/uL (4.00-5.50); RED CELL DISTRIBUTION WIDTH 18.5 % (11.0-15.5); WHITE BLOOD COUNT (AUTO) 10.6 K/uL (4.8-10.8)
[2019-03-24 04:06] LABS: INR 1.75 (0.85-1.15)
[2019-03-24 04:15] LABS: ALBUMIN 1.6 g/dL (3.5-5.0); BILIRUBIN,TOTAL 13.6 mg/dL (0.2-1.0); CREATININE 0.7 mg/dL (0.5-1.5); PHOSPHORUS 3.7 mg/dL (2.5-4.9); POTASSIUM 3.5 mmol/L (3.5-5.1); TOTAL PROTEIN, SERUM 4.5 g/dL (6.0-8.3)
[2019-03-24] MEDS: FOLIC ACID 1 MG TABLET PO SCH (09:01)
[2019-03-24] MEDS: MULTIVITAMIN TABLET PO SCH (09:01)
[2019-03-24] MEDS: PHYTONADIONE 10 MG in SODIUM CHLORIDE 0.9% 50 ML IV SCH (09:01)
[2019-03-24] MEDS: THIAMINE HCL 100 MG TABLET PO SCH (09:01)
[2019-03-24] MEDS: SPIRONOLACTONE 25 MG TAB PO SCH ×2 (09:02→20:25)
[2019-03-24] MEDS: FUROSEMIDE 20 MG TABLET PO SCH ×2 (09:02→16:10)
[2019-03-24] MEDS: MIDODRINE HCL 5 MG TABLET PO SCH ×3 (09:03→20:25)
[2019-03-24] MEDS: PANTOPRAZOLE SODIUM 40 MG TABLET.DR PO SCH (09:04)
[2019-03-24] MEDS ORDERED: POTASSIUM CHLORIDE 10% ELIXIR 20 MEQ/15 ML UDCUP PO PRN (09:15)
[2019-03-24] MEDS ORDERED: POTASSIUM CHLORIDE 20MEQ/100ML 100 ML IV PRN (09:15)
[2019-03-24] MEDS ORDERED: LIDOCAINE HCL-MPF 1% 2ML VIAL IV PRN (09:15)
[2019-03-24] MEDS ORDERED: POTASSIUM CHLORIDE 20 MEQ ERTAB PO PRN (09:15)
--- NOTE | 2019-03-24 10:00 | NUR ---
PT OUT OF BED TO BATHROOM, STEADY GAIT.
[2019-03-24] MEDS: CEFTRIAXONE SODIUM 1 GM IV SCH (11:09)
--- NOTE | 2019-03-24 12:00 | NUR ---
DIRECTIVES SW met with pt and educated on directives, MPOA. Forms were completed signed and witnessed. Copy placed in chart, pt given originals.
--- NOTE | 2019-03-24 13:55 | NUR ---
RD NOTIFICATION Pt admitted for Acute Lower GI Bleed. Pt intermittent NPO/Clear liquid diet X6days, currently NPO pending TIPS procedure scheduled for 03/25/19. Recommend to resume to hepatic diet post procedure, when medically feasible. Pt monitored labs:Hgb 7.4, Hct 22.6, Na 133, Ca 7.5, T. Bili 13.6, AST 66, Alk 177, NH3 43, Alb 1.6. RD to follow up. Please notify as additional nutritional concerns arise. Thank you. Addendum: 03/24/19 at [address] Amended: Links added.
[2019-03-24] MEDS: LEVOFLOXACIN 500 MG/D5W 100 ML 100 ML IV SCH (14:06)
[2019-03-24] MEDS ORDERED: IOHEXOL 350 MG/ML 100ML INFUS..BTL IV ONE (15:11)
--- NOTE | 2019-03-24 15:33 | NUR ---
CT SCAN PT ARRIVED FROM CT SCAN WITHOUT INCIDENT , VS STABLE
[2019-03-24 16:09] LABS: HEMATOCRIT 21.5 % (36-48)
--- NOTE | 2019-03-24 17:18 | NUR ---
BLOOD TX BLOOD TRANSFUSION BEGAN FIRST 15 MIN WITHOUT INCIDENT. VS STABLE NO TX REACTION
--- NOTE | 2019-03-24 17:53 | NUR ---
TRANSFER Received report from ICU nurse. Patient transferred from room 216 to room 230. Receiving 1u PRBCs. WIll have a recheck 1 hour after unit finished. Also, will have labs at 0300 with standing orders for both PRBCs and FFPs if needed. Patient A&OX3. In no distress. Denies any needs. Pleasant. Resting in bed. Generalized swelling.
[2019-03-24 21:45] LABS: HEMATOCRIT 23.2 % (36-48)
[2019-03-25 03:46] VITALS: BP 111/55
[2019-03-25 04:10] LABS: BASOPHILS % (AUTO) 0.3 % (0.0-5.0); EOSINOPHILS % (AUTO) 1.2 % (0.0-8.0); HEMATOCRIT 22.8 % (36-48); LYMPHOCYTES % (AUTO) 7.2 % (21.0-51.0); MEAN CORPUSCULAR HEMOGLOBIN 30.1 pg (27.0-33.0); MEAN CORPUSCULAR HGB CONC 32.5 g/dL (32.0-36.0); MEAN CORPUSCULAR VOLUME 92.7 fL (79-99); MONOCYTES % (AUTO) 12.8 % (3.0-13.0); PLATELET COUNT (AUTO) 132 K/uL (130-400); RED BLOOD CELL COUNT(AUTO) 2.46 MIL/uL (4.00-5.50); WHITE BLOOD COUNT (AUTO) 13.3 K/uL (4.8-10.8)
[2019-03-25 04:22] LABS: INR 1.69 (0.85-1.15); PROTHROMBIN TIME 17.4 SEC (9.6-11.6)
[2019-03-25 04:27] LABS: ALBUMIN 1.5 g/dL (3.5-5.0); BILIRUBIN,TOTAL 12.9 mg/dL (0.2-1.0); CREATININE 1.1 mg/dL (0.5-1.5); TOTAL PROTEIN, SERUM 4.5 g/dL (6.0-8.3)
[2019-03-25] MEDS ORDERED: SODIUM CHLORIDE 0.9% 500ML 500 ML IV ONE (05:07)
[2019-03-25] MEDS: PANTOPRAZOLE SODIUM 40 MG TABLET.DR PO SCH (05:18)
[2019-03-25 07:00] VITALS: BP 92/52
[2019-03-25 08:37] LABS: INR 1.68 (0.85-1.15); PROTHROMBIN TIME 17.3 SEC (9.6-11.6)
[2019-03-25] MEDS ORDERED: SODIUM CHLORIDE 0.9% 1000ML 1,000 ML IV SCH (08:40)
[2019-03-25] MEDS: MIDODRINE HCL 5 MG TABLET PO SCH ×3 (10:36→20:44)
[2019-03-25] MEDS: CEFTRIAXONE SODIUM 1 GM IV SCH (10:36)
[2019-03-25] MEDS: PHYTONADIONE 10 MG in SODIUM CHLORIDE 0.9% 50 ML IV SCH (10:36)
[2019-03-25] MEDS: THIAMINE HCL 100 MG TABLET PO SCH (10:37)
[2019-03-25] MEDS: MULTIVITAMIN TABLET PO SCH (10:37)
[2019-03-25] MEDS: ZINC SULFATE 220 CAPSULE PO SCH (10:37)
[2019-03-25] MEDS: ASCORBIC ACID 500 MG TAB PO SCH (10:37)
[2019-03-25] MEDS: FOLIC ACID 1 MG TABLET PO SCH (10:37)
[2019-03-25 11:00] VITALS: BP 95/56
[2019-03-25] MEDS ORDERED: ZOSYN 3.375GM+NS 50ML 50 ML IV SCH (11:00)
[2019-03-25 15:00] VITALS: BP 93/48
[2019-03-25] MEDS: LEVOFLOXACIN 500 MG/D5W 100 ML 100 ML IV SCH (16:17)
[2019-03-25 19:48] VITALS: BP 87/53
[2019-03-25] MEDS: ZOSYN 3.375GM+NS 50ML 50 ML IV SCH (20:42)
[2019-03-25 23:57] VITALS: BP 82/42
[2019-03-26] VITALS (49 sets, daily range): BP systolic 80–115; BP diastolic 36–76
[2019-03-26 04:40] LABS: BASOPHILS % (AUTO) 0.3 % (0.0-5.0); EOSINOPHILS % (AUTO) 1.6 % (0.0-8.0); LYMPHOCYTES % (AUTO) 7.2 % (21.0-51.0); MEAN CORPUSCULAR HEMOGLOBIN 29.9 pg (27.0-33.0); MEAN CORPUSCULAR HGB CONC 32.4 g/dL (32.0-36.0); MEAN CORPUSCULAR VOLUME 92.3 fL (79-99); MONOCYTES % (AUTO) 12.8 % (3.0-13.0); NEUTROPHILS % (AUTO) 77.5 % (40.0-77.0); PLATELET COUNT (AUTO) 107 K/uL (130-400); RED BLOOD CELL COUNT(AUTO) 2.21 MIL/uL (4.00-5.50); RED CELL DISTRIBUTION WIDTH 19.1 % (11.0-15.5); WHITE BLOOD COUNT (AUTO) 11.9 K/uL (4.8-10.8)
[2019-03-26] MEDS: ZOSYN 3.375GM+NS 50ML 50 ML IV SCH ×3 (04:41→20:47)
[2019-03-26 04:45] LABS: HEMATOCRIT 20.4 % (36-48)
[2019-03-26 04:51] LABS: INR 1.85 (0.85-1.15); PARTIAL THROMBOPLASTIN TIME 46.5 SEC (26.3-35.5)
[2019-03-26 04:57] LABS: ALBUMIN 1.4 g/dL (3.5-5.0); BILIRUBIN,TOTAL 11.1 mg/dL (0.2-1.0); CREATININE 0.9 mg/dL (0.5-1.5); POTASSIUM 3.7 mmol/L (3.5-5.1); TOTAL PROTEIN, SERUM 4.3 g/dL (6.0-8.3)
[2019-03-26] MEDS ORDERED: SODIUM CHLORIDE 0.9% 500ML 500 ML IV ONE (05:57)
[2019-03-26] MEDS: PANTOPRAZOLE SODIUM 40 MG TABLET.DR PO SCH (06:50)
[2019-03-26] MEDS ORDERED: VANCOMYCIN PROTOCOL PER PHARMACY IV PRN (09:00)
[2019-03-26] MEDS ORDERED: VANCOMYCIN 1GM+NS 250ML 250 ML IV SCH (09:00)
[2019-03-26] MEDS ORDERED: LACTULOSE 20 GM/30 ML UDCUP PO PRN (09:15)
[2019-03-26] MEDS ORDERED: COMPOUND IV REFRIGERATED 1 EACH IVSOLN MISC PRN (09:15)
[2019-03-26] MEDS ORDERED: VANCOMYCIN PROTOCOL PER PHARMACY IV SCH (09:30)
[2019-03-26] MEDS ORDERED: PHYTONADIONE 10 MG/1 ML AMP IM SCH (09:45)
[2019-03-26] MEDS: MIDODRINE HCL 5 MG TABLET PO SCH ×3 (09:50→20:48)
[2019-03-26] MEDS: CEFTRIAXONE SODIUM 1 GM IV SCH (09:50)
[2019-03-26] MEDS: LEVOFLOXACIN 500 MG/D5W 100 ML 100 ML IV SCH (09:50)
[2019-03-26] MEDS: FOLIC ACID 1 MG TABLET PO SCH (09:51)
[2019-03-26] MEDS: ZINC SULFATE 220 CAPSULE PO SCH (09:51)
[2019-03-26] MEDS: MULTIVITAMIN TABLET PO SCH (09:51)
[2019-03-26] MEDS: THIAMINE HCL 100 MG TABLET PO SCH (09:51)
[2019-03-26] MEDS: ASCORBIC ACID 500 MG TAB PO SCH (09:51)
[2019-03-26] MEDS ORDERED: PHYTONADIONE 10 MG/1 ML AMP ONE (11:08)
[2019-03-26] MEDS: VANCOMYCIN 1.5 GM in SODIUM CHLORIDE 0.9% 250 ML IV SCH ×2 (11:18→23:54)
--- NOTE | 2019-03-26 11:30 | NUR ---
ADMITTED FROM PCCU, REC'D REPORT FROM MURIEL CYR RN, AAOX3, UNLABORED RESPIRATIONS NOTED, ROOM AIR, CURRENTLY RECEIVING 1 UNIT OF BLOOD, B/P IN THE 80'S SYSTOLIC, WILL CONTINUE TO MONITOR
--- NOTE | 2019-03-26 18:25 | NUR ---
NOTIFIED DR HARRIS ABOUT PAGING DR GAINES TO OBTAIN CLEARANCE TO DOWNGRADE TO PCCU, BUT NO RESPONSE YET, NOTIFIED ABOUT SMALL BOWEL MOVEMENT, WHICH APPEARS FRESH BLOOD, PATIENT STATES THAT'S THE WAY HER BOWEL MOVEMENTS HAVE BEEN FOR DAYS NOW, NO NEW ORDERS GIVEN AT THIS TIME, WILL CONTINUE TO MONITOR. 2 UNITS OF PRBC'S AND 1 UNIT OF FFP COMPLETED, CBC/PT/INR TO BE DRAWN AT 2000 TONIGHT, STANDING ORDERS IN PLACE ALREADY FOR TRANSFUSION IN CASE HGB LESS THAN 7 AND INR GREATER THAN 1.50
[2019-03-26 20:59] LABS: HEMATOCRIT 27.5 % (36-48); MEAN CORPUSCULAR HEMOGLOBIN 29.4 pg (27.0-33.0); MEAN CORPUSCULAR HGB CONC 30.9 g/dL (32.0-36.0); MEAN CORPUSCULAR VOLUME 95.2 fL (79-99); PLATELET COUNT (AUTO) 92 K/uL (130-400); RED BLOOD CELL COUNT(AUTO) 2.89 MIL/uL (4.00-5.50); RED CELL DISTRIBUTION WIDTH 18.1 % (11.0-15.5); WHITE BLOOD COUNT (AUTO) 13.6 K/uL (4.8-10.8)
[2019-03-26 21:11] LABS: INR 1.64 (0.85-1.15); PROTHROMBIN TIME 16.9 SEC (9.6-11.6)
[2019-03-26] MEDS ORDERED: SODIUM CHLORIDE 0.9% 250 ML IV ONE (23:10)
[2019-03-27] VITALS (7 sets, daily range): BP systolic 77–87; BP diastolic 37–48
[2019-03-27] MEDS: ZOSYN 3.375GM+NS 50ML 50 ML IV SCH ×3 (05:34→21:28)
--- NOTE | 2019-03-27 08:00 | NUR ---
AM NOTE Awake, alert, and oriented x3. Denies any pain or shortness of breath. Does not appear in distress. Call askew within reach.
[2019-03-27] MEDS: PANTOPRAZOLE SODIUM 40 MG TABLET.DR PO SCH (08:24)
[2019-03-27] MEDS: THIAMINE HCL 100 MG TABLET PO SCH (08:24)
[2019-03-27] MEDS: ZINC SULFATE 220 CAPSULE PO SCH (08:24)
[2019-03-27] MEDS: ASCORBIC ACID 500 MG TAB PO SCH (08:25)
[2019-03-27] MEDS: MULTIVITAMIN TABLET PO SCH (08:25)
[2019-03-27] MEDS: MIDODRINE HCL 5 MG TABLET PO SCH ×3 (08:25→21:53)
[2019-03-27] MEDS: LEVOFLOXACIN 500 MG/D5W 100 ML 100 ML IV SCH (08:25)
[2019-03-27] MEDS: FOLIC ACID 1 MG TABLET PO SCH (08:25)
[2019-03-27 09:00] LABS: MEAN CORPUSCULAR HEMOGLOBIN 30.2 pg (27.0-33.0); MEAN CORPUSCULAR HGB CONC 33.3 g/dL (32.0-36.0); MEAN CORPUSCULAR VOLUME 90.6 fL (79-99); PLATELET COUNT (AUTO) 86 K/uL (130-400); RED BLOOD CELL COUNT(AUTO) 2.65 MIL/uL (4.00-5.50); RED CELL DISTRIBUTION WIDTH 17.4 % (11.0-15.5); WHITE BLOOD COUNT (AUTO) 15.4 K/uL (4.8-10.8)
[2019-03-27 09:12] LABS: INR 1.82 (0.85-1.15); PROTHROMBIN TIME 18.7 SEC (9.6-11.6)
[2019-03-27] MEDS: VANCOMYCIN 1.5 GM in SODIUM CHLORIDE 0.9% 250 ML IV SCH ×2 (09:54→22:35)
[2019-03-27] MEDS: CEFTRIAXONE SODIUM 1 GM IV SCH (11:36)
--- NOTE | 2019-03-27 16:19 | NUR ---
RD FOLLOW UP Pt reports tolerating Mechanical soft diet with no report of GI distress, PO intake at 100%. Pt with moderate fluid retention (BLE 3+) Recommend 1.5L Fluid restriction as medically feasible. Noted Pt continues with Tarry stools, LBM 03/26/19. Recommend 30mL ProMod TID. RD updated food preferences. Pt possible malnutrition risk secondary to moderate fluid retention. Pt monitored labs: Hgb 8.0, Hct 24.0, Na 131, Ca 7.2, T. Bili 11.1, AST 67, Alk 180, Alb 1.4, procalcitonin 2.64. Addendum: 03/27/19 at [address] RD Amended: Links added.
--- NOTE | 2019-03-27 17:20 | NUR ---
MD VISIT Dr. Campos in to see pt, update given. Plan of care discussed with pt and sister at bedside, verbalized understanding.
[2019-03-27] MEDS ORDERED: PHARMACY COMMUNICATION MISC SCH (17:30)
[2019-03-27] MEDS: PENTOXIFYLLINE 400 MG TABLET.SA PO SCH (17:49)
--- NOTE | 2019-03-27 19:05 | NUR ---
XFR Pt transferred to room 231 on wheelchair, in no distress. Report given to LOU Bain. All belongings taken with the pt. Telemetry pack applied.
[2019-03-27 22:40] LABS: INR 1.92 (0.85-1.15); PROTHROMBIN TIME 19.7 SEC (9.6-11.6)
[2019-03-27 23:10] LABS: MEAN CORPUSCULAR HEMOGLOBIN 29.8 pg (27.0-33.0); MEAN CORPUSCULAR HGB CONC 32.7 g/dL (32.0-36.0); MEAN CORPUSCULAR VOLUME 90.9 fL (79-99); PLATELET COUNT (AUTO) 104 K/uL (130-400); RED BLOOD CELL COUNT(AUTO) 2.42 MIL/uL (4.00-5.50); RED CELL DISTRIBUTION WIDTH 17.2 % (11.0-15.5); WHITE BLOOD COUNT (AUTO) 18.6 K/uL (4.8-10.8)
[2019-03-28 03:00] VITALS: BP 82/32
[2019-03-28] MEDS ORDERED: SODIUM CHLORIDE 0.9% 250 ML IV ONE (03:18)
[2019-03-28 05:21] LABS: HEMATOCRIT 22.5 % (36-48); MEAN CORPUSCULAR HEMOGLOBIN 29.2 pg (27.0-33.0); MEAN CORPUSCULAR HGB CONC 31.6 g/dL (32.0-36.0); MEAN CORPUSCULAR VOLUME 92.6 fL (79-99); PLATELET COUNT (AUTO) 119 K/uL (130-400); RED BLOOD CELL COUNT(AUTO) 2.43 MIL/uL (4.00-5.50); RED CELL DISTRIBUTION WIDTH 17.1 % (11.0-15.5); WHITE BLOOD COUNT (AUTO) 18.4 K/uL (4.8-10.8)
[2019-03-28 05:28] LABS: INR 1.73 (0.85-1.15); PARTIAL THROMBOPLASTIN TIME 43.5 SEC (26.3-35.5); PROTHROMBIN TIME 17.8 SEC (9.6-11.6)
[2019-03-28] MEDS: ZOSYN 3.375GM+NS 50ML 50 ML IV SCH ×2 (05:47→13:32)
[2019-03-28] MEDS: PANTOPRAZOLE SODIUM 40 MG TABLET.DR PO SCH (05:47)
[2019-03-28 05:54] LABS: ALBUMIN 1.7 g/dL (3.5-5.0); BILIRUBIN,TOTAL 14.4 mg/dL (0.2-1.0); CREATININE 1.1 mg/dL (0.5-1.5); POTASSIUM 3.6 mmol/L (3.5-5.1); TOTAL PROTEIN, SERUM 4.8 g/dL (6.0-8.3)
[2019-03-28 08:47] LABS: INR 1.76 (0.85-1.15); PROTHROMBIN TIME 18.1 SEC (9.6-11.6)
[2019-03-28] MEDS: ZINC SULFATE 220 CAPSULE PO SCH (09:15)
[2019-03-28] MEDS: MIDODRINE HCL 5 MG TABLET PO SCH ×2 (09:15→13:28)
[2019-03-28] MEDS: ASCORBIC ACID 500 MG TAB PO SCH (09:15)
[2019-03-28 09:16] VITALS: BP 81/38
[2019-03-28] MEDS: ALBUMIN (HUMAN) 25% 50 ML IV SCH ×2 (09:16→17:12)
[2019-03-28] MEDS: THIAMINE HCL 100 MG TABLET PO SCH (09:16)
[2019-03-28] MEDS: FOLIC ACID 1 MG TABLET PO SCH (09:16)
[2019-03-28] MEDS: MULTIVITAMIN TABLET PO SCH (09:16)
[2019-03-28] MEDS: PENTOXIFYLLINE 400 MG TABLET.SA PO SCH ×3 (09:16→17:12)
[2019-03-28] MEDS: LEVOFLOXACIN 500 MG/D5W 100 ML 100 ML IV SCH (09:16)
[2019-03-28 09:22] LABS: MEAN CORPUSCULAR HEMOGLOBIN 29.7 pg (27.0-33.0); MEAN CORPUSCULAR HGB CONC 32.2 g/dL (32.0-36.0); MEAN CORPUSCULAR VOLUME 92.2 fL (79-99); PLATELET COUNT (AUTO) 103 K/uL (130-400); RED BLOOD CELL COUNT(AUTO) 2.19 MIL/uL (4.00-5.50); RED CELL DISTRIBUTION WIDTH 17.1 % (11.0-15.5); WHITE BLOOD COUNT (AUTO) 16.2 K/uL (4.8-10.8)
[2019-03-28 09:25] LABS: HEMATOCRIT 20.2 % (36-48)
[2019-03-28] MEDS: VANCOMYCIN 1.5 GM in SODIUM CHLORIDE 0.9% 250 ML IV SCH (10:16)
[2019-03-28 11:09] VITALS: BP 103/39
[2019-03-28 14:21] VITALS: BP 86/52
--- NOTE | 2019-03-28 14:33 | NUR ---
[facility] met with pt and sister and discussed [facility] process. Sister states that she is trying to get pt [facility] in [place], she is waiting for call back. Sister states "you all have done all you can, but maybe someone else can do something". Pt states she wants to go home. Sister states she (sister) is in denial, but will do what pt wants. [facility] at this [facility]. Marsha notified Dr Martinez and CM of difficulty finding [facility].
--- NOTE | 2019-03-28 15:11 | NUR ---
[facility] Referral sent to [facility] hospice [phone]. Waiting on response
--- NOTE | 2019-03-28 16:18 | NUR ---
[facility] DENIED
--- NOTE | 2019-03-28 16:42 | NUR ---
DC PLAN WENT INTO ROOM WITH DR. RG TO SPEAK ABOUT PLAN OF CARE AND OPTIONS. GI SPOKE TO SURGEON AT TRANSPLANT CENTER. SAID THAT PATIENT NOT A CANDIDATE. AT THE RATE PATIENT LABS ARE WORSENING MD DOES NOT SEE HER ABLE TO MAKE IT THE 6 MONTH OF ALCOHOL ABSTINENCE TO BE PLACED ON THE TRANSPLANT LIST. PATIENT COMFORTED BEST WE WERE ABLE TO OFFERED EMOTIONAL SUPPORT AND YULIYA. PATIENT DECLINED. LET GUSSET STITCHER ABOUT HOSPICE CONSULT. PATIENT WANTS TO GO HOME. EXPLAINED THAT PATIENT IS NON FUNDED AN WE WOULD TRY TO FIND A [facility]. SAID IF NOT ABLE TO FIND ONE SHE IS OKAY WITH GOING HOME. SHE WANTS TO SPEND TIME WITH FAMILY AND TO MAKE ARRANGEMENTS. LET KNOW. Addendum: 03/28/19 at 1655 by ERASMO CAICEDO RN CM Amended: Links added.
--- NOTE | 2019-03-28 17:47 | NUR ---
RECEIVED CALL FROM YESSENIA CARBALLO RN FROM HOSPICE. REPORT PROVIDED BY THIS NURSE. STATES PT. ACCEPTED AND CAN BE DISCHARGED.
--- NOTE | 2019-03-28 17:55 | NUR ---
INFORMED PT. AND SISTER AT BEDSIDE Re:HOSPICE ACCEPTANCE AND PT. TO BE DISCHARGED HOME. PT.'S SISTER AT BEDSIDE STATES," NO THE HOSPICE NURSE SAID NOT UNTIL 2 HRS, BECAUSE THE EQUIPMENT NEEDS TO BE DELIVERED. REASSURED PT. AND SISTER THIS NURSE JUST SPOKE WITH YESSENIA, HOSPICE NURSE WHO STATED PT. CAN BE DISCHARGED, ONCE AGAIN PT.'S SISTER REAFFIRMS, "NO, THE NURSE SAID NOT FOR ANOTHER 2 HOURS." PT. TO BE DISCHARGED BY [facility] IN APPROXIMATELY 2 HRS.
[2019-03-28 19:00] VITALS: BP 83/46
== END 2019-03-28 22:30 | disposition hospice, home (50) | DRG 853 ==
LOC: EDH 09:08 → OBSVTOIN 09:09 → EDHIP 09:09 → 2CH 13:30 → 4BH 03-19 12:10 → 2CH 03-23 00:58 → 2AH 03-24 17:35 → 2CH 03-26 12:27 → 2AH 03-27 20:01
PROVIDERS: ADMIT Internal Medicine; ATTEND Internal Medicine
PROC: 06LY4CC Occlusion of Hemorrhoidal Plexus with Extraluminal Device, Percutaneous Endoscopic Approach (ICD-10-PCS; principal; 2019-03-19)
PROC: 30233N1 Transfusion of Nonautologous Red Blood Cells into Peripheral Vein, Percutaneous Approach (ICD-10-PCS; 2019-03-20)
PROC: 0W9G3ZZ Drainage of Peritoneal Cavity, Percutaneous Approach (ICD-10-PCS; 2019-03-20)
PROC: 30233K1 Transfusion of Nonautologous Frozen Plasma into Peripheral Vein, Percutaneous Approach (ICD-10-PCS; 2019-03-25)
DX: A41.9 Sepsis, unspecified organism (principal); E43 Unspecified severe protein-calorie malnutrition; K65.2 Spontaneous bacterial peritonitis; R65.21 Severe sepsis with septic shock; I85.11 Secondary esophageal varices with bleeding; J96.90 Respiratory failure, unspecified, unspecified whether with hypoxia or hypercapnia; E87.1 Hypo-osmolality and hyponatremia; D68.9 Coagulation defect, unspecified; D62 Acute posthemorrhagic anemia; K76.6 Portal hypertension; N17.9 Acute kidney failure, unspecified; K70.31 Alcoholic cirrhosis of liver with ascites; F10.20 Alcohol dependence, uncomplicated; K72.90 Hepatic failure, unspecified without coma; D69.59 Other secondary thrombocytopenia; I10 Essential (primary) hypertension; E03.9 Hypothyroidism, unspecified; Y90.0 Blood alcohol level of less than 20 mg/100 ml; K70.11 Alcoholic hepatitis with ascites; Z53.9 Procedure and treatment not carried out, unspecified reason; E86.1 Hypovolemia; K64.1 Second degree hemorrhoids; Z74.01 Bed confinement status; Z79.899 Other long term (current) drug therapy; Z68.34 Body mass index [BMI] 34.0-34.9, adult
CPT/HCPCS: 36415; 36430; 49083; 74176; 74178; 76700; 80048; 80053; 80076; 80202; 82105; 82140; 82550; 82607; 82746; 82948; 83540; 83550; 83605; 83690; 83735; 84100; 84145; 84443; 84484; 84702; 85014; 85018; 85025; 85027; 85610; 85730; 86156; 86850; 86870; 86900; 86901; 86922; 86927; 87040; 87071; 87205; 88108; 89051; 93005; 93306; 99291; C1894; C9113; G0378; G0480; J0696; J1885; J1940; J1956; J2354; J2405; J2543; J2704; J3370; J3411; J3430; J3490; J7030; J7040; P9016; P9017; P9045; P9046; P9047; Q9967